=== PATIENT | female | born 1980 | race Caucasian/White ===

== ENCOUNTER 2020-11-05 10:18 | Outpatient (CLI) | payer OTHER, SELFPAY ==
--- NOTE | ~2020-11-05 | XR_ITS ---
XR knee RT 3V DATE: 11/05/2020 10:44 INDICATION: Right knee pain TECHNIQUE: 3 views COMPARISON: None FINDINGS: No fracture or dislocation or joint effusion. No periosteal reaction or bone destruction, r adiopaque intra-articular loose body or chondrocalcinosis. Joint spaces are well preserved. IMPRESSION: Negative Reviewed, dictated and finalized at location A. ROL ELECTRICIAN IMPRESSION: Negative
== END 2020-11-05 10:19 | disposition home or self-care (01) ==
PROVIDERS: PCP Family Medicine; Visit Provider Nurse Practitioner Family
DX: M25.561 Pain in right knee (principal)
CPT/HCPCS: 73562

== ENCOUNTER 2021-01-14 09:00 | Outpatient (RCR) | payer OTHER, SELFPAY ==
--- NOTE | 2020-12-17 16:23 | PTOPEVAL ---
INITIAL PHYSICAL THERAPY EVALUATION and PLAN OF CARE Thank you for referring Ke Arredondo to [facility].? Ke is scheduled to be seen for physical therapy? once every other/week for 4 weeks. Please review, sign, date and return this plan of care NORA. I agree with and certify that the following plan of care is medically necessary. Referring Physician Date Admitting Provider: Attending Provider: JEAN-CLAUDE Junior Referring Provider: John PaulPT Outpatient Evaluation Start: 12/17/20 14:55 Freq: Status: Active Protocol: Document 12/17/20 14:56 EPIFANIO (Rec: 12/17/20 16:23 EPIFANIO [id number]) Therapy Assessment Status Assessment Status Assessment Status Evaluation Outpatient Past Medical History Past Medical History Source of Past Medical History Patient Neurological History Hx Neurological Disorders No Significant History Cardiovascular History Hx Cardiac Disorders No Significant History Respiratory History Hx Respiratory Disorders No Significant History Gastrointestinal History Hx Cholecystectomy Yes: 2014 Genitourinary History Hx Genitourinary Disorders No Significant History Musculoskeletal History Hx Fractures Yes: wrist as a child Hematological History Hx Hematological Disorders No Significant History Endocrine History Hx Endocrine Disorders No Significant History Reproductive History Hx Section Yes: 2 Evaluation Information Problem Diagnosis fecal and urinary incontinence Onset 2009 Subjective Information First started when she was Query Text:As Reported By Patient/ marathon training. May have Family worsened slightly over time. With the feces loss - mainly with running - doesn't even have sensation that she needs to defecate. Will lose urine - with a large sneeze, jumping on trampoline, or with intense running effort. 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 Home Meds Must Be Re-entered With Each Visit. Home Setting Home Type House,Multiple Levels Environmental Barriers Stairs, Greater than 4 Living Situation With Minor Child,With Spouse Mobility Assistive Devices (Used Last 3 None Months) Comments Additional Prior Leve
--- NOTE | 2021-01-28 09:01 | PCPTNOTE ---
Patient called & cancelled scheduled appointment this date due to unknown reason. She stated that she would call to reschedule this appointment.
--- NOTE | 2021-02-18 08:03 | PCPTNOTE ---
PHYSICAL THERAPY DISCHARGE SUMMARY Admitting Provider: Attending Provider: JEAN-CLAUDE Junior Patient:Ke Arredondo Date of :1980 Ke has not returned for any further treatments since 01/14/2021, therefore she will be discharged at this time. Patient?s initial visit was on 12/17/2020 14:30 and she had a total of 2 visits. She called to cancel her 01/28/21 appointment, stated that she would reschedule - this has not occurred. The goals have not been met. When Ke was seen for follow up visit on 01/14/21 she admitted to not performing her HEP. She would occasionally perform 1 of the exercises - but was done incorrectly. On her 2nd visit I did try to incorporate the pelvic floor exercises with her usual work out routine for hopes of improved compliance with the pelvic floor exercises. Thank you for referring Ke to [facility]. Please review, sign, date and return this discharge summary NORA. I have been updated about Ke's current status and I agree with discharge from the above service at this time. Referring Physician Date
== END 2021-03-02 14:42 | disposition home or self-care (01) ==
LOC: ANHHIPT 09:00
PROVIDERS: PCP Family Medicine; Visit Provider Nurse Practitioner Family
DX: R32 Unspecified urinary incontinence (principal); R15.9 Full incontinence of feces
CPT/HCPCS: 97110; 97161

== ENCOUNTER 2021-07-29 16:55 | Outpatient (CLI) | payer OTHER, SELFPAY ==
--- NOTE | ~2021-07-29 | XR_ITS ---
XR foot RT min 3V 07/29/2021 17:17 Indication: Right toe pain Procedure: 4 views right foot Comparison: Right ankle series dated 04/24/2017 Findings: No fracture, subluxation or dislocation. Lisfranc joint is intact. No focal soft tissue abn ormality. Mild degenerative changes of the midfoot. There is mild soft tissue swelling medial to the hindfoot. Impression: 1: No acute bone or joint abnormality. Reviewed, dictated and finalized at location A. Impression: 1: No acute bone or joint abnormality.
== END 2021-07-29 16:56 | disposition home or self-care (01) ==
LOC: ANHIMG 17:01
PROVIDERS: PCP Family Medicine; Visit Provider Physician Assistant
DX: M79.674 Pain in right toe(s) (principal)
CPT/HCPCS: 73630

== ENCOUNTER 2021-10-07 16:42 | Outpatient (CLI) | payer OTHER, SELFPAY ==
--- NOTE | ~2021-10-07 | XR_ITS ---
XR lumbar spine min 4V 10/07/2021 17:18 Indication: Back pain. Procedure: 5 views lumbar spine Comparison: 07/07/2016 Findings: Vertebral body heights are maintained. No fracture, subluxation or dislocation. There is mi ld disc narrowing at L5-S1. No evidence for spondylolisthesis. There are cholecystectomy clips. Impression: 1: Mild lumbar spondylosis. Reviewed, dictated and finalized at location A. WALL SHEARER OPERATOR Impression: 1: Mild lumbar spondylosis.
--- NOTE | ~2021-10-07 | XR_ITS ---
EXAMINATION: XR pelvis min 3V INDICATION: Low back pain TECHNIQUE: Three views of the pelvis are obtained. COMPARISON: None available FINDINGS: Bone alignment is normal. There is no fracture. There are phleboliths of the left pelvis. IMPRESSION: 1. No acute osseous abnormality. Reviewed, dictated and finalized at location F. COUNT ASSOCIATE
[2021-10-07 17:13] LABS: CRP 0.6 mg/dL (<1.0)
[2021-10-07 17:27] LABS: Erythrocyte Sedimentation Rate 32 mm/hr (0-20)
== END 2021-10-07 16:43 | disposition home or self-care (01) ==
LOC: ANHLAB 16:44
PROVIDERS: PCP Family Medicine; Visit Provider Physician Assistant
DX: M47.896 Other spondylosis, lumbar region (principal)
CPT/HCPCS: 36415; 72110; 72190; 85652; 86140

== ENCOUNTER → 2021-12-23 14:06 | Outpatient (CLI) | payer OTHER, SELFPAY ==
--- NOTE | ~2021-12-23 | MR_ITS ---
EXAMINATION: MR lumbar spine wo [facility] EXAM DATE: 12/23/2021 14:34 INDICATION: M54.50 - Low back pain, unspecified. TECHNIQUE: Multi-sequential, multiplanar MR images of the lumbar spine were obtained without contrast . Sagittal T1, T2, T2 fat saturation images. Axial T2 weighted images. There is no prior study for comparison. FINDINGS: There is mild to moderate disc disease L5-S1 with 3 mm retrolisthesis. Mild disc disease at L4-5. The vertebral bodies are otherwise aligned. The conus medullaris terminates at the L1/2 level and has normal signal intensity and morphology. There are no suspicious marrow signal abnormalities. Paraspinal soft tissue is unremarkable. Level by level evaluation: Study is limited due to patient motion. T12-L1: Disc does not extend beyond the endplate margin. Facet arthropathy: None. Neural foraminal stenosis: No stenosis. Central canal stenosis: No stenosis. L1-L2: Disc does not extend beyond the endplate margin. Facet arthropathy: Mild. Neural foraminal stenosis: No stenosis. Central canal stenosis: No stenosis. L2-L3: Disc does not extend beyond the endplate margin. Facet arthropathy: Mild. Neural foraminal stenosis: No stenosis. Central canal stenosis: No stenosis. L3-L4: Disc does not extend beyond the endplate margin. Facet arthropathy: Mild. Neural foraminal stenosis: No stenosis. Central canal stenosis: No stenosis. L4-L5: There is a mild diffuse disc bulge. Facet arthropathy: Mild to moderate. Neural foraminal stenosis: No stenosis. Central canal stenosis: No stenosis. L5-S1: There is a mild diffuse disc bulge. Facet arthropathy: Mild to moderate. Neural foraminal stenosis: No stenosis. Central canal stenosis: No stenosis. IMPRESSION: Mild to moderate lower lumbar spondylosis. Reviewed, dictated and finalized at location G.
== END ==
PROVIDERS: PCP Family Medicine; Visit Provider Family Medicine
DX: M47.896 Other spondylosis, lumbar region (principal)
CPT/HCPCS: 72148

== ENCOUNTER 2022-07-26 13:47 | Outpatient (CLI) | payer OTHER, SELFPAY ==
[2022-07-26 14:13] LABS: Basophils Percent Auto 0.4 % (0.2-1.2); Eosinophils Absolute Auto 0.2 K/mm3 (0-0.3); Eosinophils Percent Auto 2.1 % (0-4.4); Hematocrit 37.6 % (37.0-47.0); Hemoglobin 12.8 g/dL (12.0-15.0); Immature Granulocyte Absolute 0.01 K/mm3 (0.00-0.031); Immature Granulocyte Percent A 0.1 % (0-0.5); Lymphocytes Percent Auto 29.5 % (18.3-44.2); Mean Corpuscular Hemoglobin 31.6 pg (26-34); Mean Corpuscular Volume 92.8 fl (80-100); Mean Platelet Volume 9.6 fl (7.4-10.4); Monocytes Absolute Auto 0.4 K/mm3 (0.1-0.6); Neutrophils Absolute Auto 4.7 K/mm3 (1.3-6.7); Neutrophils Percent Auto 62.9 % (45.5-73.1); Platelet Count Result 216 k/mm3 (150-375); Red Blood Count 4.05 M/mm3 (4.2-5.4); Red Cell Distribution Width 11.9 % (11.5-14.5); White Blood Count 7.5 K/mm3 (4.5-10.0)
[2022-07-26 14:23] LABS: Alanine Aminotransferase 19 U/L (6-35); Albumin Level 4.3 g/dL (3.5-5.1); Alkaline Phosphatase 80 U/L (38-126); Anion Gap 14 mmol/L (8-16); Aspartate Amino Transferase 28 U/L (14-36); Bilirubin,Total 0.5 mg/dL (0.2-1.3); Blood Urea Nitrogen 12 mg/dL (7-17); Calcium 8.7 mg/dL (8.4-10.2); Carbon Dioxide 25 mmol/L (22-30); Chloride 102 mmol/L (98-107); Cholesterol 181 mg/dL (0-200); Estimated Glomerular Filt Rate > 60; Glucose 109 mg/dL (65-110); HDL Direct 42 mg/dL; Potassium 3.6 mmol/L (3.4-5.0); Sodium 141 mmol/L (137-145); Triglycerides 142 mg/dL (<150)
[2022-07-26 14:26] LABS: Add Urine Microscopic? YES; Appearance Urine Cloudy (Clear); Bilirubin Urine Negative (Negative); Blood Urine 3+ (Negative); Color Urine Red (Yellow); Glucose Urine UA Negative (Negative); Ketones Urine Negative (Negative); Leukocyte Esterase Ur Negative LEU/UL (NEGATIVE); Nitrate Urine Negative (Negative); Protein Urine Negative (Negative); RBC Urine >75 /hpf (0-2); Specific Grav Ur 1.009 (1.001-1.035); Urobilinogen Urine Negative mg/dL (<2.0); WBC Urine 0-3 /hpf (0-3)
[2022-07-26 14:34] LABS: LDL Cholesterol Direct 101 mg/dL
[2022-07-26 20:00] LABS: Iron 74 ug/dL (37-170)
[2022-07-26 20:10] LABS: Percent Iron Saturation 21 % (20-50)
[2022-07-26 23:09] LABS: Folic Acid 9.7 ng/mL (2.76->20)
== END 2022-07-26 13:48 | disposition home or self-care (01) ==
LOC: ANHLAB 13:48
PROVIDERS: PCP Family Medicine; Visit Provider Physician Assistant
DX: D64.9 Anemia, unspecified (principal); Z00.00 Encounter for general adult medical examination without abnormal findings
CPT/HCPCS: 36415; 80053; 80061; 81001; 82607; 82728; 82746; 83540; 83550; 84443; 85025

== ENCOUNTER 2023-10-05 07:26 | Outpatient (CLI) | payer OTHER, SELFPAY ==
[2023-10-05 08:04] LABS: Appearance Urine Cloudy (Clear); Bacteria Urine Rare /hpf; Bilirubin Urine Negative (Negative); Blood Urine Negative (Negative); Color Urine Yellow (Yellow); Glucose Urine UA Negative (Negative); Ketones Urine Negative (Negative); Leukocyte Esterase Ur Negative LEU/UL (NEGATIVE); Nitrate Urine Negative (Negative); Non Pathogenic Casts 0-2; Protein Urine Negative (Negative); Specific Grav Ur 1.017 (1.001-1.035); Squamous Epithelial Cell Urine Few /hpf (Few); WBC Urine 0-5 /hpf (0-3)
[2023-10-05 08:07] LABS: Alanine Aminotransferase 19 U/L (6-35); Albumin Level 3.8 g/dL (3.5-5.1); Alkaline Phosphatase 80 U/L (38-126); Anion Gap 7 mmol/L (8-16); Aspartate Amino Transferase 25 U/L (14-36); Bilirubin,Total 0.5 mg/dL (0.2-1.3); Blood Urea Nitrogen 11 mg/dL (7-17); Calcium 9.1 mg/dL (8.4-10.2); Carbon Dioxide 26 mmol/L (22-30); Chloride 104 mmol/L (98-107); Cholesterol 180 mg/dL (0-200); Estimated Glomerular Filt Rate > 60; Glucose 94 mg/dL (65-110); HDL Direct 61 mg/dL; Potassium 4.3 mmol/L (3.4-5.0); Sodium 137 mmol/L (137-145); Triglycerides 101 mg/dL (<150)
[2023-10-05 08:08] LABS: Hematocrit 36.3 % (37.0-47.0); Hemoglobin 12.7 g/dL (12.0-15.0); Mean Corpuscular Hemoglobin 32.2 pg (26-34); Mean Corpuscular Volume 92.1 fl (80-100); Mean Platelet Volume 9.7 fl (7.4-10.4); Platelet Count Result 236 k/mm3 (150-375); Red Blood Count 3.94 M/mm3 (4.2-5.4); White Blood Count 8.1 K/mm3 (4.5-10.0)
[2023-10-05 08:11] LABS: Add Urine Microscopic? YES
[2023-10-05 08:18] LABS: LDL Cholesterol Direct 86 mg/dL
== END 2023-10-05 07:27 | disposition home or self-care (01) ==
LOC: ANHLAB 07:27
PROVIDERS: PCP Family Medicine; Visit Provider Physician Assistant Medical
DX: Z00.00 Encounter for general adult medical examination without abnormal findings (principal); E66.3 Overweight
CPT/HCPCS: 36415; 80053; 80061; 81001; 84443; 85027

== ENCOUNTER → 2023-10-12 12:51 | Outpatient (CLI) | payer OTHER, SELFPAY ==
--- NOTE | ~2023-10-12 | US_ITS ---
EXAMINATION: US soft tissue upper back DATE: 10/12/2023 13:03 INDICATION: 0.5 soft tissue lesion lateral to thoracic spine . TECHNIQUE: Grayscale and Doppler ultrasound images of the upper back soft tissues were obtained. COMPARISON: None. FINDINGS: The region of the clinical abnormality in the upper back was sonographically interrogated, revealing a mildly lobulated 0.7 x 0.6 x 0.7 cm hypoechoic lesion with posterior shadowing at the joshua mal/subcutaneous fat junction, with a skin tract. Moderate surrounding hyperemia. IMPRESSION: Sonographic findings in the region of clinical concern are consistent with an infected/inflamed sebac eous cyst. Reviewed, dictated and finalized at location K. ERCIAL INSTRUCTOR SUPERVISOR IMPRESSION: Sonographic findings in the region of clinical concern are consistent with an i nfected/inflamed sebaceous cyst.
== END ==
PROVIDERS: PCP Family Medicine; Visit Provider Physician Assistant Medical
DX: L98.9 Disorder of the skin and subcutaneous tissue, unspecified (principal)
CPT/HCPCS: 76604

== ENCOUNTER 2024-06-16 14:57 | Outpatient (CLI) | payer OTHER, SELFPAY ==
[2024-06-16 15:18] LABS: Basophils Percent Auto 0.4 % (0.2-1.2); Eosinophils Absolute Auto 0.1 K/mm3 (0-0.3); Hematocrit 31.2 % (37.0-47.0); Hemoglobin 10.7 g/dL (12.0-15.0); Immature Granulocyte Absolute 0.02 K/mm3 (0.00-0.031); Immature Granulocyte Percent A 0.3 % (0-0.5); Lymphocytes Absolute Auto 2.34 K/mm3 (0.9-3.2); Lymphocytes Percent Auto 33.8 % (18.3-44.2); Mean Corpuscular HGB Conc 34.3 g/dl (32-36); Mean Corpuscular Hemoglobin 32.1 pg (26-34); Mean Corpuscular Volume 93.7 fl (80-100); Mean Platelet Volume 9.8 fl (7.4-10.4); Monocytes Absolute Auto 0.4 K/mm3 (0.1-0.6); Monocytes Percent Auto 6.1 % (2.6-8.5); Neutrophils Percent Auto 57.4 % (45.5-73.1); Platelet Count Result 249 k/mm3 (150-375); Red Blood Count 3.33 M/mm3 (4.2-5.4); Red Cell Distribution Width 12.1 % (11.5-14.5); White Blood Count 6.9 K/mm3 (4.5-10.0)
[2024-06-16 16:24] LABS: Iron 72 ug/dL (37-170)
[2024-06-16 16:33] LABS: Percent Iron Saturation 21 % (20-50)
[2024-06-16 18:44] LABS: Folic Acid 6.3 ng/mL (2.76->20)
== END 2024-06-16 14:58 | disposition home or self-care (01) ==
LOC: ANHLAB 14:59
PROVIDERS: PCP Family Medicine; Visit Provider Physician Assistant
DX: D64.9 Anemia, unspecified (principal); R53.83 Other fatigue
CPT/HCPCS: 36415; 82607; 82728; 82746; 83540; 83550; 85025

== ENCOUNTER 2024-08-22 00:12 | Day surgery (SDC) | payer OTHER, SELFPAY ==
[2024-08-07 14:23] VITALS: BMI 25.2
[2024-08-22 07:22] VITALS: BP 100/71; PULSE 84; RESP 16; TEMP 36.2; O2SAT 100; BMI 24.7
[2024-08-22] MEDS: LACTATED RINGERS 1,000 ML 150 ML IV CONT (07:31)
--- NOTE | 2024-08-22 08:45 | P.PNAN_ITS ---
Anes - Initial Pre Proc Eval Procedure: Operation Date: 08/22/24 08:30 Proposed Procedures p Screening Colonoscopy - Roderick Martinez MD Date/Time: 08/22/24 08:45 Surgeon: Roderick Martinez MD Pre Op Diagnosis: Anemia Patient Data Age: 44 Gender: F Height: 1.7 m Weight: 71.7 kg Last Vital Signs Temp 97.2 F L 08/22/24 07:22 Pulse 84 08/22/24 07:22 Resp 16 08/22/24 07:22 BP 100/71 08/22/24 07:22 Pulse Ox 100 08/22/24 07:22 O2 Del Method Room Air 08/22/24 07:22 Allergies Allergy/AdvReac Type Severity Reaction Status Date / Time No Known Allergies Allergy Verified 08/22/24 07:21 Home Medications Medication Instructions Recorded Confirmed Type No Home Medications 08/07/24 08/22/24 History Patient hx anesthesia problems: none Family hx anesthesia problems: none Results Review: All pre-operative results and documents have been reviewed as part of the pre- operative evaluation. [facility] Past Medical History Medical History Exercise-induced asthma Gestational hypertension Miscarriage (03/09/16) Screening mammogram, encounter for Seizures during with second child brought on by [facility] Surgical History Surgical History History of 07/18/14 primary c/s--eclamptic seizure 10/04/18 rpt c/s History of cholecystectomy (01/18/15) History of dilation and curettage 03/09/16 suction d&c--missed AB-hydratidiform Mole History of surgery on integumentary structure (~2002) laser for acne scars Family History Family History Mother Hypertension Father No problems noted. Mother No problems noted. Grandparent Acute myocardial infarction maternal grandfather Cerebrovascular accident paternal grandfather Malignant neoplasm of lung paternal grandfather Social History Social History (Updated 10/05/23 @ 10:01 by MARCO ANTONIO Padron) Smoking status: Never smoker Second hand tobacco smoke exposure: No Alcohol intake: current Drinks per week: 1 Alcohol use details: socially Substance use: never Substance use type: does not use Do You Feel Safe in your Home?: Yes Lack of Transportation: No Lack of Food: Never True Current Housing: I Have Housing Concerned About Future Housing: No Difficulty Paying Gas/Electric Bills: No Difficulty Paying for Meds: No Currently Unemployed: No Education: Bachelor's Degree Difficulty w/ Childcare or Family Care: No Living arrangements: other Additional living arrangements comments: Occupation/Education: occupation 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 Gender identity (if verbalized by the patient): Female Sexual Orientation (if Verbalized by the Patient): Straight or Heterosexual Spiritual care concerns: No Anes - Eval Final PreProcedure Day of Procedure 08/22/24 08:45 Patient weight: normal Heart: regular rate and rhythm Lungs: clear to auscultation Airway: Mallampati scale class II Neurological: alert and oriented Last oral intake: >/= 8 hours ASA classification: II Emergent: no Anesthetic plan: proceed Anesthesia type and monitoring: general GIVS and standard monitoring Results Review: All pre-operative results and documents have been reviewed as part of the pre- operative evaluation. Informed Consent: The patient's anesthetic plan and its attendant risks and benefits were discussed with the patient/family/POA. Questions were solicited and answers provided to the satisfaction of the patient/family/POA.
--- NOTE | 2024-08-22 09:00 | P.HP_ITS ---
H&P: [facility] History of Present Illness Date/Time: 08/22/24 09:00 Chief Complaint: This is the patient's first colonoscopy. There are no GI symptoms and there is no family history of colorectal cancer. Review of Systems Review of Systems: All systems reviewed & are unremarkable except as noted in HPI and below PMFSH Past Medical History Medical History Exercise-induced asthma Gestational hypertension Miscarriage (03/09/16) Screening mammogram, encounter for Seizures during with second child brought on by HTN Surgical History Surgical History History of 07/18/14 primary c/s--eclamptic seizure 10/04/18 rpt c/s History of cholecystectomy (01/18/15) History of dilation and curettage 03/09/16 suction d&c--missed AB-hydratidiform Mole History of surgery on integumentary structure (~2002) laser for acne scars Family History Family History Mother Hypertension Father No problems noted. Mother No problems noted. Grandparent Acute myocardial infarction maternal grandfather Cerebrovascular accident paternal grandfather Malignant neoplasm of lung paternal grandfather Social History Social History (Updated 10/05/23 @ 10:01 by MARCO ANTONIO Padron) Smoking status: Never smoker Second hand tobacco smoke exposure: No Alcohol intake: current Drinks per week: 1 Alcohol use details: socially Substance use: never Substance use type: does not use Do You Feel Safe in your Home?: Yes Lack of Transportation: No Lack of Food: Never True Current Housing: I Have Housing Concerned About Future Housing: No Difficulty Paying Gas/Electric Bills: No Difficulty Paying for Meds: No Currently Unemployed: No Education: Bachelor's Degree Difficulty w/ Childcare or Family Care: No Living arrangements: other Additional living arrangements comments: Occupation/Education: occupation 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 Gender identity (if verbalized by the patient): Female Sexual Orientation (if Verbalized by the Patient): Straight or Heterosexual Spiritual care concerns: No Meds Home Medications and Allergies Home Medications Medication Instructions Recorded Confirmed Type No Home Medications 08/07/24 08/22/24 History Allergies Allergy/AdvReac Type Severity Reaction Status Date / Time No Known Allergies Allergy Verified 08/22/24 07:21 Vital Signs Vital Signs - 24 hr 08/22/24 07:22 Temperature 97.2 F L Pulse Rate 84 Respiratory Rate 16 Blood Pressure 100/71 Pulse Oximetry 100 Oxygen Delivery Room Air Exam Const: General: cooperative and healthy appearing Resp: Effort & Inspection: normal respiratory effort and able to speak in complete sentences Auscultation: clear to auscultation bilaterally Cardio: Rate: regular rate Rhythm: regular rhythm GI: Inspection: normal to inspection GI Palp: No No hepatosplenomegaly present Auscultation: normal bowel sounds Rectal Exam: deferred Skin: General skin exam: normal color Psych: Appearance: grossly normal Mental Status: mental status grossly normal Assessment and Plan Assessment and plan (1) Screening for malignant neoplasm of colon: Code(s): Z12.11 - Encounter for screening for malignant neoplasm of colon Status: Acute Assessment and Plan: The patient is deemed a good candidate for the procedure. Consent signed. Will proceed.
[2024-08-22 09:21] VITALS: BP 95/64; PULSE 62; RESP 17; O2SAT 100
[2024-08-22 09:22] LABS: BEDSIDEPREGUCG Negative (Negative)
[2024-08-22 09:31] VITALS: BP 91/62; PULSE 71; RESP 22; O2SAT 99
[2024-08-22 09:41] VITALS: BP 91/63; PULSE 62; RESP 20; O2SAT 100
== END 2024-08-22 09:46 | disposition home or self-care (01) ==
PROVIDERS: PCP Family Medicine; Referring Provider Physician Assistant; Visit Provider Internal Medicine Gastroenterology
PROC: 0DJD8ZZ Inspection of Lower Intestinal Tract, Via Natural or Artificial Opening Endoscopic (ICD-10-PCS; CPT 45378; principal; 2024-08-22 08:30)
DX: Z12.11 Encounter for screening for malignant neoplasm of colon (principal)
CPT/HCPCS: 45378; J7120

== ENCOUNTER 2025-05-18 16:36 | Outpatient (CLI) | payer OTHER, SELFPAY ==
--- OUTSIDE RECORDS SUMMARY | 2025-05-18 16:40 | XMS_ITS | Clinical Summary ---
Author Organization [facility] Address [address] [place] [id number] Care Team Providers Care Dye Line Operator Name Role Phone Kemal Middleton MD Primary Care Provider Family History Medical History Relation Name Comments Hypertension Other Reported Previo us High Blood Pressure - PGF (Added by TW Conv) Relation Name Status Comments Other Social History Tobacco Use Types Packs/Day Years Used Date Smoking Tobacco: Never Assessed Comments Unknown Sex and Gender Information Value Date Recorded Sex Assigned at Not on file Legal Sex Female 2:19 PM CDT Gender Identity Female 04/18/2018 10:27 AM CDT Sexual Orientation Not on file Obstetrics History Last Filed Vital Signs Vital Sign Reading Time Taken Comments Blood Pressure 102/66 01/23/2018 8:55 AM CDT Pulse 53 01/23/2018 8:55 AM CDT Temperature - - Respiratory Rate - - Oxygen Saturation - - Inhaled Oxygen Concentration - - Weight 77.1 kg (170 lb) 01/23/2018 8:55 AM CDT Height 170.2 cm (5' 7) 01/23/2018 8:55 AM CDT Body Mass Index 26.63 01/23/2018 8:55 AM CDT Plan of Treatment Not on file Insurance [id number] [facility] [place] PPO Care Teams Dye Line Operator Relationship Specialty Start Date End Date Kemal Middleton MD [address] [facility] [address] [place], [place] [id number] PCP - General 01/31/18
--- OUTSIDE RECORDS SUMMARY | 2025-05-18 16:40 | XMS_ITS | Clinical Summary ---
Author Organization [facility] Address [address] [place] [address] Phone Care Team Providers Care Assistant Therapy Aide Name Role Phone Kemal Middleton MD Primary Care Provider Allergies No known active allergies Medications No known medications Active Problems Problem Noted Date Diagnosed Date Chronic midline low back pain without sciatica 0 04/06/2022 Foraminal stenosis of lumbar region 04/06/2022 Lumbar disc herniation 04/06/2022 Encounters Date Type Department Care Team Description 05/05/2025 External Device Data [facility] ABSTRACTION Provider, Abstract 04/15/2025 External Device Data [facility] ABSTRACTION Provider, Abstract 04/14/2025 External Device Data [facility] ABSTRACTION Provider, Abstract 03/17/2025 External Device Data [facility] ABSTRACTION Provider, Abstract 02/19/2025 External Device Data [facility] ABSTRACTION Provider, Abstract 02/18/2025 External Device Data [facility] ABSTRACTION Provider, Abstract 02/17/2025 External Device Data [facility] ABSTRACTION Provider, Abstract from Last 3 Months Family History Medical History Relation Name Comments Schizophrenia Father Hypertension Mother Other Sister Raynaud's Relation Name Status Comments Father Mother Sister Social History Tobacco Use Types Packs/Day Years Used Date Smoking Tobacco: Never Smokeless Tobacco: Never Tobacco Cessation:Counseling Given: No Alcohol Use Standard Drinks/Week Comments Yes 1 (1 standard drink = 0.6 oz pur e alcohol) Comments No Sex and Gender Information Value Date Recorded Sex Assigned at Not on file Legal Sex Female 12:58 PM PHOTOCOPYING EQUIPMENT MECHANIC Gender Identity Not on file Sexual Orientation Not on file Last Filed Vital Signs Vital Sign Reading Time Taken Comments Blood Pressure 111/73 09/22/2024 10:16 AM PHOTOCOPYING EQUIPMENT MECHANIC Pulse 65 09/22/2024 10:16 AM PHOTOCOPYING EQUIPMENT MECHANIC Temperature 36.6 C (97.8 F) 09/22/2024 10:16 AM PHOTOCOPYING EQUIPMENT MECHANIC Respiratory Rate 16 09/12/2024 1:42 PM PHOTOCOPYING EQUIPMENT MECHANIC Oxygen Saturation - - Inhaled Oxygen Concentration - - Weight 73.5 kg (162 lb) 10/02/2024 4:00 PM PHOTOCOPYING EQUIPMENT MECHANIC Height 170.2 cm (5' 7) 09/22/2024 10:16 AM PHOTOCOPYING EQUIPMENT MECHANIC Body Mass Index 25.37 09/22/2024 10:16 AM PHOTOCOPYING EQUIPMENT MECHANIC Plan of Treatment Health Maintenance Due Date Last Done Comments Pre-Diabetes and Diabetes Screening 1978 DTAP/TDAP/TD VACCINES (1 - Tdap) 1997 HEPATITIS B VACCINES (1 of 3 - 19+ 3-dose series) 03/01 HPV/Cotest (21-29) 1999 CERVICAL CANCER SCREENING 2008 HPV/Cotest (30-65) 2008 PAP SMEAR 2008 BREAST CANCER SCREENING 2018 COLORECTAL SCREENING 2023 Colorectal Cancer Screening 2023 FIT-DNA Q 3 years 2023 FIT/FOBT Q 1 year 2023 Flex Sig/CT Colonography Q 5 years 2023 INFLUENZA VACCINE (#1) 2025 Insurance [employer] CHOICE POS II Care Teams Assistant Therapy Aide Relationship Specialty Start Date End Date Kemal Middleton MD [address] [place] [id number] PCP - General Family Practice 09/11/24
--- OUTSIDE RECORDS SUMMARY | 2025-05-18 16:40 | XMS_ITS | Clinical Summary ---
Author Organization [facility] Address [address] [place] [id number] Care Team Providers Care Rv Repairer Name Role Phone Kemal Middleton MD Unavailable [phone] Kemal Middleton MD Primary Care Provider [phone] Allergies No known active allergies Medications No known medications Active Problems Problem Noted Date Diagnosed Date Foraminal stenosis of lumbar region 04/06/2022 Lumbar disc herniation 04/06/2022 Chronic midline low back pain without sciatica 0 04/06/2022 Family History Medical History Relation Comments schizophrenia Father Hypertension Mother Raynaud's Sister Relation Status Comments Father Mother Sister Social History Tobacco Use Types Packs/Day Years Used Date Smoking Tobacco: Never Smokeless Tobacco: Never Alcohol Use Standard Drinks/Week Comments Yes 0 (1 standard drink = 0.6 oz pur e alcohol) SOCIALLY Education Answer Date Recorded What is the highest level of school you have completed or the highest degree you have received? Bachelor's degree (e.g., BA, AB, BS) 01/13/2022 Comments No Sex and Gender Information Value Date Recorded Sex Assigned at Not on file Legal Sex Female 9:38 PM PRIMARY CARE MD Gender Identity Not on file Sexual Orientation Not on file Occupation Industry Job Start Date Job End Date Not on file Not on file Not on file Not on file Last Filed Vital Signs Vital Sign Reading Time Taken Comments Blood Pressure 125/64 09/10/2024 10:55 AM PRIMARY CARE MD Pulse 101 09/10/2024 10:55 AM PRIMARY CARE MD Temperature 36.7 C (98.1 F) 09/10/2024 10:55 AM PRIMARY CARE MD Respiratory Rate 16 09/10/2024 10:55 AM PRIMARY CARE MD Oxygen Saturation 100% 09/10/2024 10:55 AM PRIMARY CARE MD Inhaled Oxygen Concentration - - Weight 72.1 kg (159 lb) 09/10/2024 10:55 AM PRIMARY CARE MD Height 170.2 cm (5' 7) 09/10/2024 10:55 AM PRIMARY CARE MD Body Mass Index 24.9 09/10/2024 10:55 AM PRIMARY CARE MD Plan of Treatment Health Maintenance Due Date Last Done Comments Cervical Cancer Screening Pa p Smear (Age 30 to 64) Every 3 Years 1978 Colorectal Cancer Screening Colonoscopy (10 Years) 1978 Annual Physical 1981 Hepatitis C 1996 Hepatitis B Vaccines (1 of 3 - 19+ 3-dose series) 1997 Cervical Cancer Screening Pa p with HPV Testing (Age 30 to 64) Every 5 Years 2008 Cervical Cancer Screening with HPV 2008 Mammogram Screening 2018 COVID-19 Vaccine (2 - 2023-2 5 season) 2024 08/27/2021 DTaP, Tdap and Td Vaccines ( 2 - Td or Tdap) 10/06/2028 10/06/2018 Meningococcal B Vaccine Aged Out No l onger eligible based on patient's age to complete this topic Meningococcal Vaccine Aged Out No gavin john eligible based on patient's age to complete this topic Pneumococcal Vaccine: Pediat rics (0 to 5 Years) and At-Risk Patients (6 to 49 Years) Aged Out No longer eligi ble based on patient's age to complete this topic RSV Immunizations Under 20 Months Aged Out No longer eligible based on patient's age to complete this topic Insurance AET[employer] Care Teams Rv Repairer Relationship Specialty Start Date End Date Kemal Middleton MD [address] [place] [address] PCP - General FAMILY PRACTICE 08/11/24 Kemal Middleton MD [address] [place] [address] FAMILY PRACTICE 03/06/22
--- OUTSIDE RECORDS SUMMARY | 2025-05-18 16:40 | XMS_ITS | Clinical Summary ---
Author Organization [facility] Address [address] [address] Care Team Providers Care Sales Project Engineer Name Role Phone Kemal Middleton MD Primary Care Provider [phone] Source Comments [facility],non-owned Affiliates and Associated Physician Practices is amultiple site organization consisting of ambulatory clinics and hospital sitesin [place], [place], [place]. This disclosure is being madepursuant to the Care Everywhere program and may not contain all information available regarding this patient. Last updated 18.[facility] Active Problems Problem Noted Date Diagnosed Date Advanced maternal age (AMA) in 014 Sequential screen 01/23/2014 Supervision of other high-risk 014 Overview (08/08/2015): Social History Tobacco Use Types Packs/Day Years Used Date Smoking Tobacco: Never Assessed Comments No Sex and Gender Information Value Date Recorded Sex Assigned at Not on file Legal Sex Female 10:49 AM CDT Gender Identity Not on file Sexual Orientation Not on file Plan of Treatment Health Maintenance Due Date Last Done Comments COLOGUARD (AGES 45-75) - COL ON CA SCREENING 1978 COLON MONITORING 1978 COLONOSCOPY - COLON CA SCREENING 1978 CT COLONOGRAPHY - COLON CA SCREENING 1978 Colorectal Cancer Screening 1978 FIT - COLON CA SCREENING 1978 FLEX SIG - COLON CA SCREENING 1978 LIPID TESTING 1978 MAMMOGRAM 1978 HIV SCREENING 1993 HEPATITIS C SCREENING 03/08/1996 DTAP/TDAP/TD VACCINES (1 - Tdap) 1997 HEPATITIS B VACCINE (1 of 3 - 19+ 3-dose series) 1997 COVID-19 VACCINE (1 2023-2 5 season) 2024 DEPRESSION SCREENING 10/01/2024 INFLUENZA VACCINE (#1) 2025 ZOSTER VACCINE (1 of 2) 2028 HIB VACCINE Aged Out No longer eligi ble based on patient's age to complete this topic HPV VACCINE Aged Out No longer eligi ble based on patient's age to complete this topic MENINGOCOCCAL (Group B) VACC INE SHARED DECISION-MAKING Aged Out No longer eligibl e based on patient's age to complete this topic MENINGOCOCCAL GROUPS A/C/Y/W VACCINE Aged Out No longer eligible b ased on patient's age to complete this topic PNEUMOCOCCAL VACCINE Aged Out No long er eligible based on patient's age to complete this topic [facility] Care Teams Sales Project Engineer Relationship Specialty Start Date End Date Kemal Middleton MD [address] [place] [id number] PCP - General 10/07/18
--- OUTSIDE RECORDS SUMMARY | 2025-05-18 16:40 | XMS_ITS | Encounter Summary ---
Author Organization [facility] Address [facility] [place] [address] Care Team Providers Care Anodize Machine Operator Name Role Phone Kemal Middleton MD Primary Care Provider [phone] Anca Hollis Primary Care Provider [phone] Kemal Middleton MD Unavailable [phone] Kemal Middleton MD Primary Care Provider [phone] Encounter Details Date Type Department Care Team (Late st Contact Info) Description 12/15/2017 Abstract [facility] CONVERSION [address] [place] [address] , Generic MD Carrie Social History Tobacco Use Types Packs/Day Years Used Date Smoking Tobacco: Never Assessed Comments Unknown Sex and Gender Information Value Date Recorded Sex Assigned at Not on file Legal Sex Female 9:38 PM [employer] Gender Identity Not on file Sexual Orientation Not on file documented as of this encounter Plan of Treatment Not on file documented as of this encounter Visit Diagnoses Not on filedocumented in this encounter Care Teams Anodize Machine Operator Relationship Specialty Start Date End Date Kemal Middleton MD [address] [place] [address] PCP - General FAMILY PRACTICE 03/11/21 03/05/22 Anca Hollis FNP [address] [place] [address] PCP - General Nurse Practitioner Family 03/06/2207/24 Kemal Middleton MD [address] [place] [address] PCP - General FAMILY PRACTICE 08/11/24 Kemal Middleton MD [address] [place] [address] FAMILY PRACTICE 03/06/22 documented as of this encounter
== END 2025-05-18 16:37 | disposition home or self-care (01) ==
PROVIDERS: PCP Family Medicine; Visit Provider Family Medicine
DX: Z20.9 Contact with and (suspected) exposure to unspecified communicable disease (principal)
CPT/HCPCS: 86658

== ENCOUNTER 2025-06-05 14:44 | Outpatient (CLI) | payer OTHER, SELFPAY ==
--- NOTE | ~2025-06-05 | MM_ITS ---
EXAMINATION: MM screening robyn BI w honorio HISTORY: Screening TECHNIQUE: Craniocaudal and mediolateral oblique 3-D tomosynthesis images were obtained and synthetic 2-D images were generated. CAD analysis was submitted and interpreted. COMPARISON: No prior mammogram is available for comparison at this institution. BREAST PARENCHYMAL COMPOSITION: There are scattered areas of fibroglandular density. FINDINGS: There is no evidence of suspicious mass, calcification, or architectural distortion to suggest malignancy. There has been no suspicious interval change. IMPRESSION: 1. No mammographic evidence of malignancy. Recommend routine screening mammography in one year. BI-RADS Category 2: Benign finding(s) Reviewed, dictated and finalized at location Q. IMPRESSION: 1. No mammographic evidence of malignancy. Recommend routine screening mammogra phy in one year. BI-RADS Category 2: Benign finding(s)
--- OUTSIDE RECORDS SUMMARY | 2025-06-05 06:00 | XMS_ITS ---
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 http_s://opal.nih.gov/publications/drugfacts/cannabis-marijuana http_s://www.[employer]/radfphos-sxz-fvynuyhr-marijuana-adhd/ Plan: * Treatment: * Labs: * L ab: UDT (Collection Date & Time - 06/05/2025) Value Reference Range T HC n 0 - 50 ng/ml * C ocaine n 0 - 300 ng/ml * A mphetamine p 0 - 1000 ng/ml * B uprenorphine (BUP) n 0 - 10 ng/ml * S ecobarbital (Bar) n 0 - 300 ng/ml * O xazepam (BZO) n 0 - 300 ng/ml * 2 -ethylidene-1,1-yjxogvgz-3,3-diphenylpyrrolidine (EDDP) n 0 - 300 ng/ml * M ethamphetamine (MET) n 0 - 1000 ng/ml * M ethylenedioxymethamphetamine (MDMA) n 0 - 500 ng/ml * M orphine (MOP 300/[id number]) n 0 - 300 ng/ml * M ethadone (MTD) n 0 - 300 ng/ml * P hencyclidine (PCP) n 0 - 25 ng/ml * N ortriptyline (TCA) n 0 - 1000 ng/ml * O xycodone n 0 - 300 ng/ml * Procedure Codes: 1 036F TOBACCO NON-USER, 40476 BEHAV ASSMT W/SCORE & DOCD/STAND INSTRUMENT, 13683 DRUG TST PRSMV READ INSTRMNT ASSTD DIR OPT OBS, G2211 VISIT COMPLEXITY INHERENT TO ONGOING CARE RELATED TO A PATIENT'S SINGLE, SERIOUS CONDITION OR A COMPLEX CONDITION * Preventive Medicine: Screenings: D epression screening Have you had a recent depression screening? Y es * Follow Up: 3 Months (Reason: medication follow up) Billing Information: * Visit Code: 00117 OFFICE OUTPATIENT VISIT 25 MINUTES DETAILED HISTORY AND EXAM/MODERATE MEDICAL DECISION MAKING. * Procedure Codes: 1036F TOBACCO NON-USER. 96761 BEHAV ASSMT W/SCORE & DOCD/STAND INSTRUMENT. 65688 DRUG TST PRSMV READ INSTRMNT ASSTD DIR OPT OBS. G2211 VISIT COMPLEXITY INHERENT TO ONGOING CARE RELATED TO A PATIENT'S SINGLE, SERIOUS CONDITION OR A COMPLEX CONDITION. * Sign off status: Completed true * Provider: SARAH PAULA Date: 06/05/2025 Generated for Dayron mai/Nawaf/Lacey on: 06/05/2025 02:48 PM CDT
--- OUTSIDE RECORDS SUMMARY | 2025-06-05 14:48 | XMS_ITS | Patient Health Record ---
Author Organization [facility] Address [address] [place] [address] Care Team Providers Care Telehealth Director Name Role Phone Kemal Middleton MD Primary Care Provider UnavailDamaris Trevino Unavailable [phone] Torey Copeland Unavailable [phone] Allergies No Known Allergies Results Component Value Reference Range Notes UDT Reviewed date:06/05/2025 11:17:27 AM Interpretation: Performing Lab: Notes/Report: THC n 0 - 50 ng/ml Cocaine n 0 - 300 ng/ml Amphetamine p 0 - 1000 ng/ml Buprenorphine (BUP) n 0 - 10 ng/ml Secobarbital (Bar) n 0 - 300 ng/ml Oxazepam (BZO) n 0 - 300 ng/ml 2-kgkqzrfrjy-0,5-rrqcxasx-6,3-diphenylpyrrolidine (CHRISTOPHER P) n 0 - 300 ng/ml Methamphetamine (MET) n 0 - 1000 ng/ml Methylenedioxymethamphetamine (MDMA) n 0 - 500 ng/ml Morphine (MOP 300/JUU3419) n 0 - 300 ng/ml Methadone (MTD) n 0 - 300 ng/ml Phencyclidine (PCP) n 0 - 25 ng/ml Nortriptyline (TCA) n 0 - 1000 ng/ml Oxycodone n 0 - 300 ng/ml UDT Reviewed date:03/10/2025 03:54:17 PM Interpretation: Performing Lab: Notes/Report: THC NEG 0 - 50 ng/ml Cocaine NEG 0 - 300 ng/ml Amphetamine NEG 0 - 1000 ng/ml Buprenorphine (BUP) NEG 0 - 10 ng/ml Secobarbital (Bar) NEG 0 - 300 ng/ml Oxazepam (BZO) NEG 0 - 300 ng/ml 8-vxhjxldtbm-4,1-pskbvogf-1,3-diphenylpyrrolidine (CHRISTOPHER P) NEG 0 - 300 ng/ml Methamphetamine (MET) NEG 0 - 1000 ng/ml Methylenedioxymethamphetamine (MDMA) NEG 0 - 500 ng/ml Morphine (MOP 300/TXP5995) NEG 0 - 300 ng/ml Methadone (MTD) NEG 0 - 300 ng/ml Phencyclidine (PCP) NEG 0 - 25 ng/ml Nortriptyline (TCA) NEG 0 - 1000 ng/ml Oxycodone NEG 0 - 300 ng/ml x NEG 0 - 300 ng/ml UDT Reviewed date:03/21/2025 09:12:28 PM Interpretation: Performing Lab: Notes/Report: THC n 0 - 50 ng/ml Cocaine n 0 - 300 ng/ml Amphetamine n 0 - 1000 ng/ml Buprenorphine (BUP) n 0 - 10 ng/ml Secobarbital (Bar) n 0 - 300 ng/ml Oxazepam (BZO) n 0 - 300 ng/ml 7-bbvqnnngot-6,3-itkdmjpb-7,3-diphenylpyrrolidine (CHRISTOPHER P) n 0 - 300 ng/ml Methamphetamine (MET) n 0 - 1000 ng/ml Methylenedioxymethamphetamine (MDMA) n 0 - 500 ng/ml Morphine (MOP 300/[id number]) n 0 - 300 ng/ml Methadone (MTD) n 0 - 300 ng/ml Phencyclidine (PCP) n 0 - 25 ng/ml Nortriptyline (TCA) n 0 - 1000 ng/ml Oxycodone n 0 - 300 ng/ml x n 0 - 300 ng/ml Reason For Referral No Information Medications Medication SIG (Take, Route, Frequency, Duration) Notes Start Date End Date Status Amphetamine-Dextroamp het ER 15 MG Capsule Extended Release 24 Hour 1 capsule in the morning Orally Once a day; Duration: 30 days 06/05/2025 Active Vitamin D3 1.25 MG (99961 UT) Capsule TAKE ONE CAPSULE BY MOUTH EVERY WEEK DIRECTED FOR 15 WEEKS Oral; Duration: 84 Days E559,Unavailable Active Social History Tobacco Use: Social History Observation Description Date Details (start date - stop date) Never Smoker NA - NA Sex Assigned At : Social History Observation Description Sex Assigned At Female Social History Social History Social Info Question Answer Notes Household: Marital Status: Number of Adults in household: 2 Number of Children in Household: 2 Level of Education: Finished College Family Yearly Income: use notes section Hindu: add to notes Drug/Alcohol: Social Info Question Answer Notes AUDIT-C (Standard) Did you have a drink containing alcohol in the past year? Yes Tobacco Use: Social Info Question Answer Notes Tobacco Control (Standard) Tobacco use: Nonsmoker Additional Details Category Social Info Options Details Drug/Alcohol: Do you smoke marijuana? Den ies Do you drink alcohol? Yes Problems Problem Type SNOMED Code ICD Code Onset Dates Problem Status W/U Status Risk Notes Problem Generalized anxiety disorder (75951417) Generalized anxiety disorder (F41.1) Active confirmed Problem Screening for cardiovascular system disease (147011181) Encounter for screening for cardiovascular disorders (Z13.6) Active confirmed Problem Depression Screening (625599759) Encounter for screening for depression (Z13.31) Active confirmed Problem Attention deficit hyperactivity disorder (283419981) ADHD (attention deficit hyperactivity disorder), combined type (F90.2) Active confirmed Problem Mild recurrent major depression (45030297) MDD (major depressive disorder), recurrent episode, mild (F33.0) Active confirmed Problem Attention deficit hyperactivity disorder (617400527) Attention deficit hyperactivity disorder (ADHD), unspecified ADHD type (F90.9) Active confirmed Vital Signs Heart Rate 70 /min 06/05/2025 Respiratory Rate 16 /min 05/08/2025 Height-cm 170.18 cm 06/05/2025 Blood pressure diastolic 74 mm Hg 06/05/2025 Weight-kg 70.58 kg 06/05/2025 Height 67 in 06/05/2025 Blood pressure systolic 105 mm Hg 06/05/2025 Weight 155.6 lbs 06/05/2025 BMI 24.37 kg/m2 06/05/2025 Encounters Encounter Location Date Provider Diagnosis [facility] [address] [place] [address] 03/10/2025 Damaris Ornelas Encounter for screen ing for depression Z13.31 ; ADHD (attention deficit hyperactivity disorder), combined type F90.2 ; Encounter for screening for cardiovascular disorders Z13.6 and Generalized anxiety disorder F41.1 [facility] [address] [place] [address] 03/20/2025 Torey Copeland Attention deficit hyperactivity disorder (ADHD), unspecified ADHD type F90.9 [facility] [address] [place] [address] 04/06/2025 Damaris Thery [facility] [address] [place] [address] 04/09/2025 Damaris Thery Encounter for screen ing for depression Z13.31 ; ADHD (attention deficit hyperactivity disorder), combined type F90.2 ; Encounter for screening for cardiovascular disorders Z13.6 and Generalized anxiety disorder F41.[address] [facility] [address] [place] [address] 05/07/2025 Damaris Thery [address] [place] [address] 05/08/2025 Damaris Thery Encounter for screen ing for depression Z13.31 ; ADHD (attention deficit hyperactivity disorder), combined type F90.2 ; Encounter for screening for cardiovascular disorders Z13.6 and Generalized anxiety disorder F41.[address] [facility] [address] [place] [address] 06/05/2025 Damaris Thery ADHD (attention defi cit hyperactivity disorder), combined type F90.2 and Generalized anxiety disorder F41.1 Assessments Encounter Date Diagnosis (ICD Code) Assessment Notes Treatment Notes Treatment Clinical Notes Section Notes 03/10/2025 Encounter for screening for depression (ICD-10 - Z13.31) 1. ADHD Creyos testing schedule 2. Anxiety educated on all medications, benefits, side effects [...] effects including loss of libido, increased suicidal thoughts/behavio rs in children and young adults, and serotonin syndrome. Medication Management and Follow-Up - Plan: - Schedule follow-up appointments every 1-3 months to monitor the patient's response to the medication regimen. - Reinforce the importance of avoiding recreational drug use due to potential neurotoxicity and interactions with prescribed medications. websites http_s://www.nim h.nih.gov/health /topics/mental-h ealth-medication s http_s://www.[facility] i.org/About-Ment al-Illness/Treat ments/Mental-Hea lth-Medications http_s://www.[facility] i.org/About-Ment al-Illness/Menta w-Ylimpn-Ocotcux ons http_s://[employer]/depres janene/the-cogniti zy-qrrfccpj-kq-d epression#treatm ents http__s://www.[facility].nih.gov/healt h/topics/mental- health-medicatio ns http__s://www.na mi.org/About-Men twin-Illness/Lo tments/Mental-He alth-Medications http_s://opal.[facility].gov/publicatio ns/drugfacts/can nabis-marijuana http_s://www.[employer]/can yurjm-xgu-raboxj ya-ulzwuxxjx-xjr d/ 03/10/2025 ADHD (attention deficit hyperactivity disorder), combined type (ICD-10 - F90.2) 1. ADHD Creyos testing schedule 2. Anxiety educated on all medications, benefits, side effects [...] effects including loss of libido, increased suicidal thoughts/behavio rs in children and young adults, and serotonin syndrome. Medication Management and Follow-Up - Plan: - Schedule follow-up appointments every 1-3 months to monitor the patient's response to the medication regimen. - Reinforce the importance of avoiding recreational drug use due to potential neurotoxicity and interactions with prescribed medications. websites http_s://www.[facility].nih.gov/health /topics/mental-h ealth-medication s http_s://www.nam i.org/About-Ment al-Illness/Treat ments/Mental-Hea lth-Medications http_s://www.nam i.org/About-Ment al-Illness/Menta v-Oqretj-Rufnffs ons http_s://psychce [employer]/paulvaldo watters/the-cogniti hq-qdfblymu-ja-d epression#treatm ents http__s://www.ni mh.nih.gov/healt h/topics/mental- health-medicatio ns http__s://www.na mi.org/About-Men twin-Illness/Lo tments/Mental-He alth-Medications http_s://opal.ni h.gov/publicatio ns/drugfacts/can nabis-marijuana http_s://www.[employer]/can pxbij-hbu-dkfclw zq-tvuijpyvt-yhz d/ 03/20/2025 Attention deficit hyperactivity disorder (ADHD), unspecified ADHD type (ICD-10 - F90.9) Interpretation of ADHD Assessment Results: The individual assessed is a female in the 45 to 54 age group. Her cognitive profile reveals 3 markers outside the typical range. The ASRS v1.1 screening tool indicates clinically significant symptoms for the Hyperactive/Impul sive subtype, while the Inattentive subtype was not endorsed. Cognitive Assessment Findings: Planning (Spatial Planning Task) Score: 14 Percentile: 44 Interpretation: Within normal range. No major difficulties with planning tasks. Spatial Working Memory (Token Search) Score: 5.83 Percentile: 62 Interpretation: Above average working memory performance for her age group. Attention (Feature Match) Errors: 2 Reaction time: 310ms Percentiles: Errors (69), Reaction Time (46) Interpretation: Attention accuracy is preserved, though reaction speed is slightly below average. Response Inhibition (Double Trouble Task) Errors: 9 Interference for reaction time: 167, which is outside the typical range Percentiles: Errors (70), Interference errors (85), Interference reaction time (97) Interpretation: Strong performance on accuracy but notable difficulty managing reaction time when under cognitive conflict, suggesting mild inhibition control deficits. Sustained Attention (SART) Commission Errors: 0 Omission Errors: 2 Reaction Time Variability: 145ms Percentiles: Commission (0), Omission (33), Variability (55) Interpretation: No impulsive errors, but some difficulty maintaining consistent responses across time. Performance is borderline for sustained attention. ASRS v1.1 Screening Score: 6 Threshold: > 3 Interpretation: Results are indicative of ADHD. The symptoms endorsed are more consistent with hyperactive or impulsive traits rather than inattention. Summary Pattern: Overall cognitive function is within average to above-average range, with three specific areas showing mild deficits. Impairments are most evident in response inhibition under cognitive load and variability in sustained attention. The ASRS result indicates ADHD symptoms that may not be fully captured in objective testing, especially in adult females where compensatory strategies are common. Non-Pharmacologic Recommendations: Cognitive Behavioral Therapy (CBT) Tailored to adults with ADHD to manage impulsivity, enhance task persistence, and reduce emotional reactivity. Executive Function Coaching Personalized sessions to improve time management, organization, and prioritization. Particularly useful in managing distractibility and regulating effort over longer tasks. Mindfulness Training Structured mindfulness programs can help regulate impulsive responses and reduce cognitive interference. Task Structuring Strategies Use of time-blocking, alarms, and accountability systems to maintain focus and reduce variability in task engagement. Sleep Hygiene and Regular Exercise Consistent sleep schedule and aerobic activity have been shown to improve cognitive flexibility and mood regulation. Digital Tools and Supports Use ADHD-focused productivity apps for reminders, breaking large tasks into smaller steps, and reducing cognitive load. Stress Management Techniques Breathing exercises, relaxation techniques, or light yoga to manage physiological arousal which may worsen impulsivity. Clinical Note: Findings suggest mild cognitive impairments in inhibition and sustained attention that align with the self-reported symptoms of hyperactivity and impulsivity. These results should be paired with clinical interview data. Behavioral interventions and cognitive supports are the first-line approaches. At this time, non-stimulant strategies should be prioritized. 04/09/2025 Encounter for screening for depression (ICD-10 - Z13.31) 1. ADHD Creyos testing- reviewed Indicative ADHD Add Adderall XR 10 mg in am discuss and educated on cardiovascular risk, monitor mood and B/P ADHD stimulates education NO CONTROL SUBSTANCE PRESCRIBED BY SADA WITH CANNABIS USE OR OTHER ILLEGAL DRUG USE Discuss with patient risk of misuse, abuse, and addiction before prescribing stimulant medicines. 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 Random UDS [place] prescription reviewed local pharmacy in [place], no [...] effects including loss of libido, increased suicidal thoughts/behavio rs in children and young adults, and serotonin syndrome. Medication Management and Follow-Up - Plan: - Schedule follow-up appointments every 1-3 months to monitor the patient's response to the medication regimen. - Reinforce the importance of avoiding recreational drug use due to potential neurotoxicity and interactions with prescribed medications. websites http_s://www.nim h.nih.gov/health /topics/mental-h ealth-medication s http_s://www.nam i.org/About-Ment al-Illness/Treat ments/Mental-Hea lth-Medications http_s://www.nam i.org/About-Ment al-Illness/Menta d-Hzrygd-Rxbmnnk ons http_s://[employer]/deprvaldo janene/the-cogniti cd-qmefnvhc-fc-d epression#treatm ents http__s://www.ni .nih.gov/healt h/topics/mental- health-medicatio ns http__s://www.na mi.org/About-Men twin-Illness/Lo tments/Mental-He alth-Medications http_s://opal.ni h.gov/publicatio ns/drugfacts/can nabis-marijuana http_s://www.[employer]/can uvlvv-wkf-zoeeqd pc-hfmpxjmyn-yze d/ 05/08/2025 Encounter for screening for depression (ICD-10 - Z13.31) 1. ADHD Creyos testing- reviewed Indicative ADHD Increase Adderall XR 15 mg in am discuss and educated on cardiovascular risk, monitor mood and B/P ADHD stimulates education NO CONTROL SUBSTANCE PRESCRIBED BY SADA WITH CANNABIS USE OR OTHER ILLEGAL DRUG USE Discuss with patient risk of misuse, abuse, and addiction before prescribing stimulant medicines. 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 Random UDS [place] prescription reviewed local pharmacy in [facility], no early refills on control substance educated [...] effects including loss of libido, increased suicidal thoughts/behavio rs in children and young adults, and serotonin syndrome. Medication Management and Follow-Up - Plan: - Schedule follow-up appointments every 1-3 months to monitor the patient's response to the medication regimen. - Reinforce the importance of avoiding recreational drug use due to potential neurotoxicity and interactions with prescribed medications. websites http_s://www.nim h.nih.gov/health /topics/mental-h ealth-medication s http_s://www.nam i.org/About-Ment al-Illness/Treat ments/Mental-Hea lth-Medications http_s://www.nam i.org/About-Ment al-Illness/Menta g-Uflokm-Dyzxvkd ons http_s://psychce [employer]/alicia watters/the-cogniti tp-zzuwgoat-at-d epression#treatm ents http__s://www.ni .nih.gov/healt h/topics/mental- health-medicatio ns http__s://www.na mi.org/About-Men twin-Illness/Lo tments/Mental-He alth-Medications http_s://opal.ni h.gov/publicatio ns/drugfacts/can nabis-marijuana http_s://www.[employer]/can ktour-imy-bdmgvx pp-sraxjemdo-jcl d/ 06/05/2025 Generalized anxiety disorder (ICD-10 - F41.1) [...] abuse, and addiction before prescribing stimulant medicines. 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 Random UDS [place] prescription reviewed local pharmacy in [facility], no early refills on control substance educated [...] effects including loss of libido, increased suicidal thoughts/behavio rs in children and young adults, and serotonin syndrome. Medication Management and Follow-Up - Plan: - Schedule follow-up appointments every 1-3 months to monitor the patient's response to the medication regimen. - Reinforce the importance of avoiding recreational drug use due to potential neurotoxicity and interactions with prescribed medications. websites http_s://www.nim h.nih.gov/health /topics/mental-h ealth-medication s http_s://www.nam i.org/About-Ment al-Illness/Treat ments/Mental-Hea lth-Medications http_s://www.nam i.org/About-Ment al-Illness/Menta g-Qjvqbo-Halruus ons http_s://psychce [employer]/alicia watters/the-cogniti dj-dyxcmame-um-d epression#treatm ents http__s://www.ni .nih.gov/healt h/topics/mental- health-medicatio ns http__s://www.na mi.org/About-Men twin-Illness/Lo tments/Mental-He alth-Medications http_s://opal.ni h.gov/publicatio ns/drugfacts/can nabis-marijuana http_s://www.[employer]/can efnwm-bax-kbmoqn zj-syaelrbpj-pvw d/ 06/05/2025 ADHD (attention deficit hyperactivity disorder), combined [...] abuse, and addiction before prescribing stimulant medicines. 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 Random [facility] prescription reviewed local pharmacy in [place], no [...] effects including loss of libido, increased suicidal thoughts/behavio rs in children and young adults, and serotonin syndrome. Medication Management and Follow-Up - Plan: - Schedule follow-up appointments every 1-3 months to monitor the patient's response to the medication regimen. - Reinforce the importance of avoiding recreational drug use due to potential neurotoxicity and interactions with prescribed medications. websites http_s://www.[facility].nih.gov/health /topics/mental-h ealth-medication s http_s://www.nam i.[employer]: [employer]/About-Ment al-Illness/Treat ments/Mental-Hea lth-Medications http_s://www.nam i.org/About-Ment al-Illness/Menta b-Ikuipl-Cdevvul ons http_s://[employer]/depres janene/the-cogniti uh-kvcpqclm-eu-d epression#treatm ents http__s://www.[facility].nih.gov/healt h/topics/mental- health-medicatio ns http__s://www.na mi.org/About-Men twin-Illness/Lo tments/Mental-He alth-Medications http_s://opal. h.gov/publicatio ns/drugfacts/can nabis-marijuana http_s://www.[employer]/can fhofr-suh-rswhrm vj-iubtsfkbn-kbt 05/08/2025 ADHD (attention deficit hyperactivity disorder), combined type (ICD-10 - F90.2) 1. ADHD Creyos testing- reviewed Indicative ADHD Increase Adderall XR 15 mg in am discuss and educated on cardiovascular risk, monitor mood and B/P ADHD stimulates education NO CONTROL SUBSTANCE PRESCRIBED BY SADA WITH CANNABIS USE OR OTHER ILLEGAL DRUG USE Discuss with patient risk of misuse, abuse, and addiction before prescribing stimulant medicines. 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 Random UDS [place] prescription reviewed local pharmacy [place], no [...] effects including loss of libido, increased suicidal thoughts/behavio rs in children and young adults, and serotonin syndrome. Medication Management and Follow-Up - Plan: - Schedule follow-up appointments every 1-3 months to monitor the patient's response to the medication regimen. - Reinforce the importance of avoiding recreational drug use due to potential neurotoxicity and interactions with prescribed medications. websites http_s://www.nim h.nih.gov/health /topics/mental-h ealth-medication s http_s://www.nam i.org/About-Ment al-Illness/Treat ments/Mental-Hea lth-Medications http_s://www.nam i.org/About-Ment al-Illness/Menta u-Olmliv-Dclyjig ons http_s://[employer]/depres janene/the-cogniti qy-qhwftelv-sx-d epression#treatm ents http__s://www.ni .nih.gov/healt h/topics/mental- health-medicatio ns http__s://www.na mi.org/About-Men twin-Illness/Lo tments/Mental-He alth-Medications http_s://opal.ni h.gov/publicatio ns/drugfacts/can nabis-marijuana http_s://www.[employer]/can plgkr-wcb-bsjoxd qx-uvryitejp-rvt d/ 04/09/2025 ADHD (attention deficit hyperactivity disorder), combined type (ICD-10 - F90.2) 1. ADHD Creyos testing- reviewed Indicative ADHD Add Adderall XR 10 mg in am discuss and educated on cardiovascular risk, monitor mood and B/P ADHD stimulates education NO CONTROL SUBSTANCE PRESCRIBED BY SADA WITH CANNABIS USE OR OTHER ILLEGAL DRUG USE Discuss with patient risk of misuse, abuse, and addiction before prescribing stimulant medicines. 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 Random UDS [place] prescription reviewed local pharmacy in [facility], no early refills on control substance educated [...] effects including loss of libido, increased suicidal thoughts/behavio rs in children and young adults, and serotonin syndrome. Medication Management and Follow-Up - Plan: - Schedule follow-up appointments every 1-3 months to monitor the patient's response to the medication regimen. - Reinforce the importance of avoiding recreational drug use due to potential neurotoxicity and interactions with prescribed medications. websites http_s://www.nim h.nih.gov/health /topics/mental-h ealth-medication s http_s://www.nam i.org/About-Ment al-Illness/Treat ments/Mental-Hea lth-Medications http_s://www.nam i.org/About-Ment al-Illness/Menta j-Zxrgec-Jlwdzyw ons http_s://psychce [employer]/deprvaldo janene/the-cogniti yu-uqytgjbo-kj-d epression#treatm ents http__s://www.[facility].nih.gov/healt h/topics/mental- health-medicatio ns http__s://www.na wa.org/About-Men twin-Illness/Lo tments/Mental-He alth-Medications http_s://opal.ni h.gov/publicatio ns/drugfacts/can nabis-marijuana http_s://www.[employer]/can vnfyg-soi-hwhhio vq-mobymctcr-vwm d/ 03/10/2025 Encounter for screening for cardiovascular disorders (ICD-10 - Z13.6) 1. ADHD Creyos testing schedule 2. Anxiety educated on all medications, benefits, side effects [...] effects including loss of libido, increased suicidal thoughts/behavio rs in children and young adults, and serotonin syndrome. Medication Management and Follow-Up - Plan: - Schedule follow-up appointments every 1-3 months to monitor the patient's response to the medication regimen. - Reinforce the importance of avoiding recreational drug use due to potential neurotoxicity and interactions with prescribed medications. websites http_s://www.[facility] h.nih.gov/health /topics/mental-h ealth-medication s http_s://www.nam i.org/About-Ment al-Illness/Treat ments/Mental-Hea lth-Medications http_s://www.nam i.org/About-Ment al-Illness/Menta t-Bjsfta-Zdfrlwm ons http_s://psychce [employer].com/depres janene/the-cogniti sv-elypbarz-hy-d epression#treatm ents http__s://www.[facility].nih.gov/healt h/topics/mental- health-medicatio ns http__s://www.[facility].org/About-Men twin-Illness/Lo tments/Mental-He alth-Medications http_s://opal. h.gov/publicatio ns/drugfacts/can nabis-marijuana http_s://www.[employer]/can grmdz-jdd-udmzrj ty-exhifnrsj-nht d/ 03/10/2025 Generalized anxiety disorder (ICD-10 - F41.1) 1. ADHD Creyos testing schedule 2. Anxiety educated on all medications, benefits, side effects [...] effects including loss of libido, increased suicidal thoughts/behavio rs in children and young adults, and serotonin syndrome. Medication Management and Follow-Up - Plan: - Schedule follow-up appointments every 1-3 months to monitor the patient's response to the medication regimen. - Reinforce the importance of avoiding recreational drug use due to potential neurotoxicity and interactions with prescribed medications. websites http_s://www.nim h.nih.gov/health /topics/mental-h ealth-medication s http_s://www.nam i.org/About-Ment al-Illness/Treat ments/Mental-Hea lth-Medications http_s://www.nam i.org/About-Ment al-Illness/Menta u-Imvwzf-Ebbntey ons http_s://[employer]ce [employer]/alicia watters/the-cogniti kp-zjudlpkq-um-d epression#treatm ents http__s://www.ni .nih.gov/healt h/topics/mental- health-medicatio ns http__s://www.na mi.org/About-Men twin-Illness/Lo tments/Mental-He alth-Medications http_s://opal.ni h.gov/publicatio ns/drugfacts/can nabis-marijuana http_s://www.[employer]/can utdgs-cgq-amyjso tv-insipxicx-rcz d/ 04/09/2025 Encounter for screening for cardiovascular disorders (ICD-10 - Z13.6) 1. ADHD Creyos testing- reviewed Indicative ADHD Add Adderall XR 10 mg in am discuss and educated on cardiovascular risk, monitor mood and B/P ADHD stimulates education NO CONTROL SUBSTANCE PRESCRIBED BY SADA WITH CANNABIS USE OR OTHER ILLEGAL DRUG USE Discuss with patient risk of misuse, abuse, and addiction before prescribing stimulant medicines. 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 [facility] prescription reviewed local pharmacy in [facility], no early refills on control substance educated [...] effects including loss of libido, increased suicidal thoughts/behavio rs in children and young adults, and serotonin syndrome. Medication Management and Follow-Up - Plan: - Schedule follow-up appointments every 1-3 months to monitor the patient's response to the medication regimen. - Reinforce the importance of avoiding recreational drug use due to potential neurotoxicity and interactions with prescribed medications. websites http_s://www.nim h.nih.gov/health /topics/mental-h ealth-medication s http_s://www.nam i.org/About-Ment al-Illness/Treat ments/Mental-Hea lth-Medications http_s://www.nam i.org/About-Ment al-Illness/Menta k-Cpvwsf-Ctlsnze ons http_s://psychce [employer]/depres janene/the-cogniti uw-vfjwryth-te-d epression#treatm ents http__s://www.ni .nih.gov/healt h/topics/mental- health-medicatio ns http__s://www.na mi.org/About-Men twin-Illness/Lo tments/Mental-He alth-Medications http_s://opal.ni h.gov/publicatio ns/drugfacts/can nabis-marijuana http_s://www.[employer]/can squkk-xzr-vkhyab us-ssqlrfzzy-nuh d/ 05/08/2025 Encounter for screening for cardiovascular disorders (ICD-10 - Z13.6) 1. ADHD Creyos testing- reviewed Indicative ADHD Increase Adderall XR 15 mg in am discuss and educated on cardiovascular risk, monitor mood and B/P ADHD stimulates education NO CONTROL SUBSTANCE PRESCRIBED BY SADA WITH CANNABIS USE OR OTHER ILLEGAL DRUG USE Discuss with patient risk of misuse, abuse, and addiction before prescribing stimulant medicines. 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 [facility] prescription reviewed local pharmacy in [facility], no early refills on control substance educated [...] effects including loss of libido, increased suicidal thoughts/behavio rs in children and young adults, and serotonin syndrome. Medication Management and Follow-Up - Plan: - Schedule follow-up appointments every 1-3 months to monitor the patient's response to the medication regimen. - Reinforce the importance of avoiding recreational drug use due to potential neurotoxicity and interactions with prescribed medications. websites http_s://www.nim h.nih.gov/health /topics/mental-h ealth-medication s http_s://www.nam i.org/About-Ment al-Illness/Treat ments/Mental-Hea lth-Medications http_s://www.nam i.org/About-Ment al-Illness/Menta k-Ozarnl-Ktinoup ons http_s://[employer]/depres janene/the-cogniti rj-umohukmp-mr-d epression#treatm ents http__s://www.[facility].nih.gov/healt h/topics/mental- health-medicatio ns http__s://www.na mi.org/About-Men twin-Illness/Lo tments/Mental-He alth-Medications http_s://opal.[facility].gov/publicatio ns/drugfacts/can nabis-marijuana http_s://www.[employer]/can urdlf-qyu-ucasax qx-enkwxpbfl-hgt d/ 05/08/2025 Generalized anxiety disorder (ICD-10 - F41.1) 1. ADHD Creyos testing- reviewed Indicative ADHD Increase Adderall XR 15 mg in am discuss and educated on cardiovascular risk, monitor mood and B/P ADHD stimulates education NO CONTROL SUBSTANCE PRESCRIBED BY SADA WITH CANNABIS USE OR OTHER ILLEGAL DRUG USE Discuss with patient risk of misuse, abuse, and addiction before prescribing stimulant medicines. 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 [facility] prescription reviewed local pharmacy [place], no [...] effects including loss of libido, increased suicidal thoughts/behavio rs in children and young adults, and serotonin syndrome. Medication Management and Follow-Up - Plan: - Schedule follow-up appointments every 1-3 months to monitor the patient's response to the medication regimen. - Reinforce the importance of avoiding recreational drug use due to potential neurotoxicity and interactions with prescribed medications. websites http_s://www.[facility].nih.gov/health /topics/mental-h ealth-medication s http_s://www.nam i.[employer]: [employer]/About-Ment al-Illness/Treat ments/Mental-Hea lth-Medications http_s://www.nam i.org/About-Ment al-Illness/Menta s-Xdrvfd-Dcvyorf ons http_s://[employer]/depres janene/the-cogniti cs-gxqdqkdo-lo-d epression#treatm ents http__s://www.[facility].nih.gov/healt h/topics/mental- health-medicatio ns http__s://www.na mi.org/About-Men twin-Illness/Lo tments/Mental-He alth-Medications http_s://opal. h.gov/publicatio ns/drugfacts/can nabis-marijuana http_s://www.[employer]/can vghqm-ipm-fnnwyk qi-tggmymufy-idy d04/09/2025 Generalized anxiety disorder (ICD-10 - F41.1) 1. ADHD Creyos testing- reviewed Indicative ADHD Add Adderall XR 10 mg in am discuss and educated on cardiovascular risk, monitor mood and B/P ADHD stimulates education NO CONTROL SUBSTANCE PRESCRIBED BY SADA WITH CANNABIS USE OR OTHER ILLEGAL DRUG USE Discuss with patient risk of misuse, abuse, and addiction before prescribing stimulant medicines. 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 [facility] [place] prescription reviewed local pharmacy in [place], no [...] effects including loss of libido, increased suicidal thoughts/behavio rs in children and young adults, and serotonin syndrome. Medication Management and Follow-Up - Plan: - Schedule follow-up appointments every 1-3 months to monitor the patient's response to the medication regimen. - Reinforce the importance of avoiding recreational drug use due to potential neurotoxicity and interactions with prescribed medications. websites http_s://www.nim h.nih.gov/health /topics/mental-h ealth-medication s http_s://www.nam i.org/About-Ment al-Illness/Treat ments/Mental-Hea lth-Medications http_s://www.nam i.org/About-Ment al-Illness/Menta x-Tnxhmk-Ykhufeq ons http_s://[employer]/depres janene/the-cogniti yk-hmaxjjvt-my-d epression#treatm ents http__s://www.ni mh.nih.gov/healt h/topics/mental- health-medicatio ns http__s://www.na mi.org/About-Men twin-Illness/Lo tments/Mental-He alth-Medications http_s://opal.ni h.gov/publicatio ns/drugfacts/can nabis-marijuana http_s://www.[employer]/can krzvw-llv-ekwkne jf-vwekxajub-vul d/ 03/10/2025 Other Learning About Depression Screening material was printed 1. ADHD Creyos testing schedule 2. Anxiety educated on all medications, benefits, side effects [...] effects including loss of libido, increased suicidal thoughts/behavio rs in children and young adults, and serotonin syndrome. Medication Management and Follow-Up - Plan: - Schedule follow-up appointments every 1-3 months to monitor the patient's response to the medication regimen. - Reinforce the importance of avoiding recreational drug use due to potential neurotoxicity and interactions with prescribed medications. websites http_s://www.nim h.nih.gov/health /topics/mental-h ealth-medication s http_s://www.nam i.org/About-Ment al-Illness/Treat ments/Mental-Hea lth-Medications http_s://www.nam i.org/About-Ment al-Illness/Menta d-Rupcul-Amcuqyw ons http_s://[employer]/depres janene/the-cogniti jx-wwxofnqj-sh-d epression#treatm ents http__s://www.ni .nih.gov/healt h/topics/mental- health-medicatio ns http__s://www.na mi.org/About-Men twin-Illness/Lo tments/Mental-He alth-Medications http_s://opal.ni h.gov/publicatio ns/drugfacts/can nabis-marijuana http_s://www.[employer]/can oxyig-tkx-mqvkof sn-aexfhvefm-tpr d/ Plan Of Treatment Future Test Test Name Order Date ADHD Testing 03/10/2025 Next Appt Details Provider Name:Damaris Ornelas , 08/21/2025 02:45:00 PM, [address], [address], [place], [address], Insurance Providers Payer Name Payer Address Payer Phone Subscriber Number Group Number Insured Name Patient Relationship to Insured Coverage Start Date Coverage End Date [employer] [address] [place] [phone] [id number] Ke Arredondo Self - patient is the insured Medical (General) History Medical History History ICD Code abdominal aortic aneurysm: No atrial fibrillation: No chronic fatigue syndrome: No essential tremor: No hyperlipidemia: No hypertension: No Parkinson's disease: No restless leg syndrome: No stroke: No subdural hematoma: No type 1 diabetes mellitus: No type 2 diabetes mellitus: No vitamin B12 deficiency: No vitamin D deficiency: Yes Surgical History Surgery Date(Month/Year) galbladder removal section x3 Hospitalization History Reason Date(Month/Year) galbladder removal c sections x3
--- OUTSIDE RECORDS SUMMARY | 2025-06-05 14:48 | XMS_ITS | Clinical Summary ---
Author Organization [facility] Address [address] [place] [address] Phone Care Team Providers Care Loan Representative Name Role Phone Kemal Middleton MD Primary Care Provider [phone] Allergies No known active allergies Medications No [...] on file Legal Sex Female 12:58 PM PRINCIPAL DATA ARCHITECT Gender Identity Not on file Sexual Orientation Not on file Last Filed Vital Signs Vital Sign Reading Time Taken Comments Blood Pressure 111/73 09/22/2024 10:16 AM PRINCIPAL DATA ARCHITECT Pulse 65 09/22/2024 10:16 AM PRINCIPAL DATA ARCHITECT Temperature 36.6 C (97.8 F) 09/22/2024 10:16 AM PRINCIPAL DATA ARCHITECT Respiratory Rate 16 09/12/2024 1:42 PM PRINCIPAL DATA ARCHITECT Oxygen Saturation - - Inhaled Oxygen Concentration - - Weight 73.5 kg (162 lb) 10/02/2024 4:00 PM PRINCIPAL DATA ARCHITECT Height 170.2 cm (5' 7) 09/22/2024 10:16 AM PRINCIPAL DATA ARCHITECT Body Mass Index 25.37 09/22/2024 10:16 AM PRINCIPAL DATA ARCHITECT Plan of Treatment Health Maintenance Due Date [...] Insurance [employer] CHOICE POS II Care Teams Loan Representative Relationship Specialty Start Date End Date Kemal Middleton MD [address] [facility] [address] [place] [address] PCP - General Family Practice 09/11/24
--- OUTSIDE RECORDS SUMMARY | 2025-06-05 14:48 | XMS_ITS | Clinical Summary ---
Author Organization [facility] Address [address] [place] [id number] Care Team Providers Care Grades 1 Thru 6 Visiting Teacher Name Role Phone Kemal Middleton MD Primary [...] Plan of Treatment Not on file Insurance [employer] [facility] PPO Care Teams Grades 1 Thru 6 Visiting Teacher Relationship Specialty Start Date End Date Kemal Middleton MD [address] [facility] [address] [place], [place] [id number] PCP - General 01/31/18
--- OUTSIDE RECORDS SUMMARY | 2025-06-05 14:48 | XMS_ITS | Clinical Summary ---
Author Organization [facility] Address [address] [place] [address] Care Team Providers Care Pensionholder Information Clerk Name Role Phone Kemal Middleton MD Primary Care Provider [phone] Source Comments [facility],non-owned Affiliates and Associated Physician Practices is amultiple site organization consisting of ambulatory clinics and hospital sitesin [place], [place], [place] and [place]. This disclosure is being madepursuant to the Care Everywhere program and may not contain all information available regarding this patient. Last updated 18.[facility] Box Jump Active Problems Problem Noted Date Diagnosed Date [...] of 3 - 19+ 3-dose series) 1997 DEPRESSION SCREENING 10/01/2024 COVID-19 VACCINE (1 2023-2 5 season) 2025 INFLUENZA VACCINE (#1) 2025 ZOSTER VACCINE (1 [...] patient's age to complete this topic Insurance [facility] Care Teams Pensionholder Information Clerk Relationship Specialty Start Date End Date Kemal Middleton MD [address] [place] [id number] PCP - General 10/07/18
== END 2025-06-05 14:45 | disposition home or self-care (01) ==
LOC: ANHFOHIMG 14:45
PROVIDERS: PCP Family Medicine; Visit Provider Obstetrics & Gynecology
DX: Z12.31 Encounter for screening mammogram for malignant neoplasm of breast (principal)
CPT/HCPCS: 77063; 77067